=== PATIENT | male | born 1975 | race Caucasian/White ===

== ENCOUNTER 2021-04-22 10:37 | Emergency (ER) | payer OTHER ==
[~2021-04-22] VITALS: Ht 157.5 cm; Wt 72.6 kg
[2021-04-22] MEDS ORDERED: DEXAMETHASONE 44 M1 PO (10:57)
[2021-04-22] MEDS ORDERED: ZOFRAN ODT4 MG DISSOLVE (10:57)
[2021-04-22 11:24] VITALS: BP 112/83
== END 2021-04-22 11:25 | disposition home or self-care (01) ==
LOC: M.ERS 10:37
DX: U07.1 COVID-19 (principal); R11.2 Nausea with vomiting, unspecified; R19.7 Diarrhea, unspecified